=== PATIENT | female | born 1965 | race Caucasian/White ===

== ENCOUNTER 2017-07-27 08:22 | Day surgery (SDC) | payer OTHER, MEDICAID ==
[2017-07-27] MEDS ORDERED: MIDAZOLAM 2 MG/2 ML VIAL IVP ONE ×3 (08:55→09:22)
[2017-07-27] MEDS ORDERED: LIDOCAINE 1% 2 ML INJ ID PRN (08:56)
[2017-07-27] MEDS ORDERED: LR 1,000 ML IV ONE (08:56)
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
[2017-07-27] MEDS ORDERED: INDOMETHACIN 50 MG SUPP PR PRN (09:08)
[2017-07-27] MEDS ORDERED: fentaNYL 100 MCG/2 ML INJ ONE ×2 (09:13→10:40)
[2017-07-27] MEDS ORDERED: PROPOFOL 200 MG/20 ML VIAL ONE ×2 (09:13→09:46)
[2017-07-27] MEDS ORDERED: NS 500 ML IV SCH (09:15)
[2017-07-27] MEDS ORDERED: MIDAZOLAM 2 MG/2 ML VIAL ONE (09:19)
[2017-07-27] MEDS ORDERED: NALOXONE HCL 0.4 MG/ML INJ IVP PRN (09:29)
--- NOTE | 2017-07-27 10:34 | GIREPORT ---
[facility] - Endoscopy Department Patient Name: Carmela Palmer Procedure Date: 07/27/2017 9:13 AM Patient Type: Outpatient Attending MD/ ER Physician: Won Huynh MD Procedure: Upper EUS Indications: Gastric mucosal mass/polyp found on endoscopy, Submucosal tumor versus extrinsic mass found on endoscopy Patient Profile: 52 year old female presents for evaluation of heartburn, bloating, uppe r abdominal discomfort, and a gastric subepithelial lesion. Providers: Won Huynh MD Medicines: Monitored Anesthesia Care Complications: No immediate complications. Estimated blood loss: Minimal. Description of Procedure: After obtaining informed consent, the endoscope was passed under direct vision. Throughout the procedure, the patient's blood pressure, pulse, and oxygen saturations were monitored continuously. The Endosonoscope was introduced through the mouth, and advanced to the second part of duoden um. The Endoscope was introduced through the mouth, and advanced to the sec ond part of duodenum. The upper EUS was accomplished without difficulty. Th e esophagus, stomach, and duodenum were visualized endosonographically. T he patient tolerated the procedure well. Findings: Endoscopic Finding : The examined esophagus was normal. Several biopsies were obtained in th e middle third of the esophagus with cold forceps for histology. A single 11 mm submucosal papule (nodule) was found in the gastric antr um. The lesion was located at the junction of the greater curvature/posteri or wall about 7cms from the pylorus. Area was tattooed with an injection o f 3 mL of Tahira ink after EUS examination. A medium-sized hiatal hernia was present. Patchy mildly erythematous mucosa was found in the gastric body and in the gastric antrum. Biopsies were taken with a cold forceps for histology. The examined duodenum was normal. Biopsies for histology were taken wit h a cold forceps for evaluation of celiac disease. Endosonographic Finding : An oval intramural (subepithelial) lesion was found in the antrum of th e stomach. The lesion was hypoechoic. Sonographically, the lesion appeare d to originate from the submucosa (Layer 3). The lesion measured 11 mm (in maximum thickness). The lesion also measured 8 mm in diameter. The oute r endosonographic borders were well defined. Fine needle biopsy was perfo rmed but difficult due to its location. It was hard to penetrate the lesion and the needle did bounce off several times. Color Doppler imaging was util ized prior to needle puncture to confirm a lack of significant vascular structures within the needle path. Three passes were made with the 22 g auge ultrasound biopsy needle (x1) and with the 25 gauge ultrasound biopsy (x2)needle using a transgastric approach. Pancreatic parenchymal abnormalities were noted in the entire pancreas. These consisted of hyperechoic foci. There was no sign of significant endosonographic abnormality in the com mon bile duct. No lymphadenopathy seen. Estimated Blood Loss: Estimated blood loss was minimal. Post Op Diagnosis: - Normal esophagus. - Medium-sized hiatal hernia. - Erythematous mucosa in the gastric body and antrum. Biopsied. - Normal examined duodenum. Biopsied. - An intramural (subepithelial) lesion was found in the antrum of the stomach. The lesion appeared to originate from within the submucosa (La jody 3). Fine needle biopsy performed. Tattoo placed. - Pancreatic parenchymal abnormalities consisting of hyperechoic foci w ere noted in the entire pancreas. - There was no sign of significant pathology in the common bile duct. - Several biopsies were obtained in the middle third of the esophagus. - Etiology? Suspect lesion is GIST versus leiomyoma? Will await [facility] res ults. Unchanged in size from 2016 where had EUS by Dr. Pantoja. Recommendation: - Discharge patient to home (with escort). - Return to GI office as previously scheduled. - Await cytology results and await path results. - Continue present medications. - Advance diet as tolerated. Attending Participation: I personally performed the entire procedure. Won Huynh MD Won Huynh MD 07/27/2017 10:33:30 AM This report has been signed electronicallyWon Huynh MD Number of Addenda: 0 Note Initiated On: 07/27/2017 9:13 AM [email or web address]
[2017-07-27] MEDS ORDERED: fentaNYL 100 MCG/2 ML INJ IVP ONE (10:37)
[2017-07-27] MEDS ORDERED: ONDANSETRON 4 MG/2 ML VIAL IVP ONE (10:37)
[2017-07-27] MEDS ORDERED: ONDANSETRON 4 MG/2 ML VIAL ONE (10:40)
[2017-07-27] MEDS ORDERED: oxyCODONE IR 5 MG TAB PO PRN (10:52)
[2017-07-27] MEDS ORDERED: oxyCODONE IR 5 MG TAB ONE (10:55)
--- NOTE | 2017-07-27 11:01 | POSTANESTH ---
Post Anesthetic Evaluation Cardiovascular Status: Normal, Stable Respiratory Status: Normal, Stable Level of Consciousness/Mental Status: Can Participate in Eval Pain Control: Adequate, Prn Tx Ordered Nausea/Vomiting Control: Adequate, Prn Tx Ordered Complications Possibly Related to Anesthesia: None Noted
[2017-07-27 11:32] VITALS: BP 107/62
== END 2017-07-27 11:45 | disposition home or self-care (01) ==
LOC: FSGY 08:22
PROVIDERS: ATTEND Internal Medicine Gastroenterology
PROC: 0DB98ZX Excision of Duodenum, Via Natural or Artificial Opening Endoscopic, Diagnostic (ICD-10-PCS; principal; 2017-07-27 10:00)
PROC: 0DB68ZX Excision of Stomach, Via Natural or Artificial Opening Endoscopic, Diagnostic (ICD-10-PCS; principal; 2017-07-27 10:00)
PROC: 0DB28ZX Excision of Middle Esophagus, Via Natural or Artificial Opening Endoscopic, Diagnostic (ICD-10-PCS; principal; 2017-07-27 10:00)
DX: K31.9 Disease of stomach and duodenum, unspecified (principal); K29.50 Unspecified chronic gastritis without bleeding; K22.70 Barrett's esophagus without dysplasia; K44.9 Diaphragmatic hernia without obstruction or gangrene; R12 Heartburn; F41.1 Generalized anxiety disorder; G89.4 Chronic pain syndrome; F43.10 Post-traumatic stress disorder, unspecified; Z79.891 Long term (current) use of opiate analgesic; Z87.820 Personal history of traumatic brain injury
CPT/HCPCS: J2250; J2405; J2704; J3010